=== PATIENT | female | born 1955 | race Caucasian/White ===

== ENCOUNTER 2022-11-27 06:12 | Day surgery (SDC) | payer MEDICARE ==
[2022-11-27] MEDS ORDERED: Lactated Ringers 1,000 ML IV SCH ×2 (07:00)
[2022-11-27] MEDS ORDERED: Propofol 200 MG/20 ML SDV ONE (07:15)
[2022-11-27] MEDS ORDERED: Midazolam 1 MG/ML 2 ML SDV ONE (07:15)
[2022-11-27] MEDS ORDERED: fentaNYL 50 MCG/ML SDV ONE (07:15)
== END 2022-11-27 09:34 | disposition home or self-care (01) ==
LOC: JP.SDS 06:12
PROVIDERS: ATTEND Student in an Organized Health Care Education/Training Program
DX: Z12.11 Encounter for screening for malignant neoplasm of colon (principal); K57.30 Diverticulosis of large intestine without perforation or abscess without bleeding; Z91.040 Latex allergy status
CPT/HCPCS: 45378; J2250; J2704; J3010; J7120